=== PATIENT | male | born 1945 | race Two or more races ===

== ENCOUNTER 2025-02-09 14:39 | Emergency (ER) | payer MEDICARE, MEDICAID, SELFPAY ==
[2025-02-09 14:42] VITALS: BMI 27.4
--- NOTE | 2025-02-09 15:20 | PD.EDEYE ---
ED Eye Problem RME/HPI General Chief complaint: Eye Problems Stated complaint: something in eye after working in yard x 8 days Time Seen by Provider: 02/09/25 15:21 Source: patient Arrival date/time: 02/09/25 14:39 79-year-old male with no known medical history presents to the emergency room with a chief complaint of irritation to his left eye after doing yard work 8 days ago. Mode of arrival: ambulatory Limitations: no limitations Related Data Previous Rx's ?Medication ?Instructions ?Recorded albuterol sulfate 90 mcg/actuation 2 puff INH Q4HRRT PRN shortness of 07/18/20 aerosol inhaler (Ventolin HFA) breath or wheezing #6.7 grams cephalexin 500 mg capsule 500 mg PO Q8H #20 caps 03/30/23 sulfamethoxazole 800 1 tab PO BID #14 tabs 11/18/23 mg-trimethoprim 160 mg tablet (Bactrim DS) ciprofloxacin HCl 0.3 % eye drops See Rx Instructions ophthalmic 02/09/25 (eye) .COMPLEX #5 mL Allergies Allergy/AdvReac Type Severity Reaction Status Date / Time No Known Allergies Allergy Verified 11/02/23 18:21 Review of Systems Review of Systems Systems Reviewed: All systems reviewed, normal except as documented Constitutional Constitutional: Reports system reviewed and no additional complaints, except as documented, Denies fatigue, Denies fever(s), Denies headache(s) and Denies weakness Eyes Eyes: Reports system reviewed and no additional complaints, except as documented, Denies blind spots, Reports blurry vision, Denies change in vision, Denies decreased night vision, Denies diplopia, Denies eye discharge, Denies exophthalmos, Denies floaters, Reports irritation, Denies itchy eyes, Denies loss of peripheral vision, Denies loss of vision, Denies other visual disturbances, Reports eye pain, Denies photophobia, Denies requires corrective lenses, Denies seeing flashes, Denies spots in vision and Denies tunnel vision ENT Ears, Nose, Mouth, and Throat: Reports system reviewed and no additional complaints, except as documented, Denies otalgia, Denies headache(s), Denies nasal congestion, Denies throat swelling and Denies vertigo Cardiovascular Cardiovascular: Reports system reviewed and no additional complaints, except as documented, Denies chest pain, Denies dyspnea and Denies dyspnea on exertion Respiratory Respiratory: Reports system reviewed and no additional complaints, except as documented, Denies chest congestion, Denies cough, Denies dyspnea, Denies dyspnea on exertion and Denies wheezing Gastrointestinal Gastrointestinal: Reports system reviewed and no additional complaints, except as documented, Denies abdominal pain, Denies cramping, Denies nausea and Denies vomiting Genitourinary Genitourinary: Reports system reviewed and no additional complaints, except as documented, Denies dysuria and Denies hematuria Musculoskeletal Musculoskeletal: Reports system reviewed and no additional complaints, except as documented and Denies back pain Integumentary/Breasts Skin/Breast: Reports system reviewed and no additional complaints, except as documented and Denies wounds Neurologic Neurologic: Reports system reviewed and no additional complaints, except as documented, Denies confusion, Denies headache(s), Denies lack of coordination, Denies loss of vision, Denies vertigo and Denies weakness Psychiatric Psychiatric: Reports system reviewed and no additional complaints, except as documented, Denies anxiety, Denies confusion, Denies depression, Denies paranoia, Denies suicidal ideation and Denies tactile hallucinations Endocrine Endocrine: Reports system reviewed and no additional complaints, except as documented and Denies fatigue Hematologic/Lymphatic Hematologic/Lymphatic: Reports system reviewed and no additional complaints, except as documented and Denies lymphadenopathy Allergic/Immunologic Allergic/Immunologic: Reports system reviewed and no additional complaints, except as documented, Denies itchy eyes, Denies throat swelling, Denies urticaria and Denies wheezing ED Exam General Limitations: Present no limitations Course Quality Measures none Orders Category Date Time Status ED Eye Irrigation ONCE Care 02/09/25 15:19 Active Visual Acuity X1 Care 02/09/25 15:19 Active Holguin Lamp to Bedside X1 Care 02/09/25 15:19 Active Fluorescein Sodium [[id number]] Med 02/09/25 15:19 Discontinued 1 mg LEFT EYE X1 ONE TETRACAINE Op Caron 0.5% [Pontocaine Op Caron 0.5%] Med 02/09/25 15:19 Discontinued 1 drop LEFT EYE X1 ONE Vital Signs Vital signs: Vital Signs Temperature 97.8 F 02/09/25 15:42 Pulse Rate 58 L 02/09/25 15:42 Respiratory Rate 16 02/09/25 15:42 Blood Pressure 124/71 02/09/25 15:42 Pulse Oximetry (%) 97 02/09/25 15:42 Oxygen Delivery Method Room Air 02/09/25 15:42 O2 saturation 97% within normal limits Procedures -ED Holguin Lamp Exam Left eye: Flourescein uptake:: Yes Holguin Lamp Findings: Corneal abrasion Eye MDM Narrative MDM Narrative:: 79-year-old male with no known medical history presents to the emergency room with a chief complaint of irritation to his left eye after doing yard work 8 days ago. Patient is hemodynamically stable and in no apparent distress Physical examination shows pupils are PERRLA EOMs are intact there is no visual foreign body in the left eye. Conjunctive was not injected patient states his only symptom is blurry vision and irritation and feels like there is something inside his eye. A Holguin lamp examination was completed and shows a corneal abrasion. Antibiotics are sent to the patient's pharmacy Patient was discharged and educated to follow-up with primary care provider in the next 24 to 48 hours and return to the emergency room for any evidence of worsening signs or symptoms Patient data External records reviewed:: [facility] previous records Clinical information provided by:: patient Social determinants that could affect healthcare access:: none Patient has the following chronic illnesses:: No chronic illness How is presenting disease/condition affected by chronic disease/condition?: no chronic disease Evaluation data The following diagnostics were reviewed and interpreted by me:: lab results and radiology exam(s) Lab and/or radiology exams considered but not ordered:: Labs and radiology exams considered and ordered Interpretation Summary: N/A Medications / Prescriptions Medications or Prescriptions considered but not ordered:: Medication given Medication administrations:: Medication Administration History Discontinued Medications Fluorescein Sodium (Fluorescein Sod 1 Mg Strp) 1 mg LEFT EYE X1 ONE Stop: 02/09/25 15:20 Last Admin: 02/09/25 15:26 Dose: 1 mg Documented By: Tetracaine HCl (Tetracaine Pf Op Caron 0.5% 4 Ml Drpette) 1 drop LEFT EYE X1 ONE Stop: 02/09/25 15:20 Last Admin: 02/09/25 15:26 Dose: 1 drop Documented By: Medication given Consultations Consultation(s) initiated? (list below): No Diagnosis Eye Problem Differential Diagnosis: corneal abrasion, conjunctivitis, acute iritis, hyphema, periorbital cellulitis and corneal ulcer Most likely diagnosis given after review of the tests above:: Corneal abrasion Admission Indicated Admission indicated?: not indicated Admission Request Was there a request for admission?: No Disposition Plan Disposition Plan: Discharge Discharge Attestation Discharge Attestation: The patient and all family members were given an opportunity to ask questions and understood the discharge instructions. Discharge instructions specifically effects, indications for sooner follow up or return to the emergency department, and the expected course of current diagnosis. Patient condition: Stable Discharge Plan Plan Patient Disposition: HOME (Self Care) Prescriptions/Referrals Prescriptions/Med Rec: New ciprofloxacin HCl 0.3 % drops See Rx Instructions .ROUTE .COMPLEX Qty: 5 0RF Rx Instructions: put 1-2 drps in affected eye(s) every 2hr up to 8 times/day x2days; then 4 times/day x5days No Action albuterol sulfate [Ventolin HFA] 90 mcg/actuation Hfa Aerosol Inhaler 2 puff INH Q4HRRT PRN (Reason: shortness of breath or wheezing) Qty: 6.7 0RF sulfamethoxazole-trimethoprim [Bactrim DS] 800-160 mg tablet 1 tab PO BID Qty: 14 0RF cephalexin 500 mg capsule 500 mg PO Q8H Qty: 20 0RF Referrals: Krishna Blood [Primary Care Provider] - In 1 week Problem List Clinical Impression: Corneal abrasion Patient/Caregiver Discharge Instructions Education Materials: ED Corneal Abrasion Additional Instructions: Por favor, consulte con benites m?dico de cabecera en las pr?ximas 24 a 48 horas. Si sakshi signos y s?ntomas persisten, deber? consultar con un oftalm?logo para un tratamiento adicional. Los antibi?ticos se env?an a benites farmacia; rec?jalos y t?melos seg?n lo indicado. Paauilo ayudar? con la abrasi?n corneal que tiene en el marj. Si observa cualquier signo de empeoramiento de los signos o s?ntomas, acuda a urgencias de inmediato. Print Language: [place] Stand Alone Forms: Brenda Award Info., Patient Portal Info Letter PA/COLORIST DYER Supervising Physician PA/JOSE Supervising Physician: Dr Kelly
[2025-02-09] MEDS: FLUORESCEIN SOD 1 MG STRP LEFT EYE (15:26)
[2025-02-09] MEDS: TETRACAINE PF OP SOL 0.5% 4 ML DRPETTE 1 DROP LEFT EYE (15:26)
[2025-02-09 15:42] VITALS: BP 124/71; PULSE 58; RESP 16; TEMP 36.6; O2SAT 97
== END 2025-02-09 16:33 | disposition home or self-care (01) ==
PROVIDERS: Emergency Provider Emergency Medicine; PCP Physician Assistant
DX: S05.02XA Injury of conjunctiva and corneal abrasion without foreign body, left eye, initial encounter (principal); X58.XXXA Exposure to other specified factors, initial encounter
CPT/HCPCS: 99283

== ENCOUNTER → 2025-09-10 | Outpatient (CLI) | payer MEDICARE, MEDICAID, SELFPAY ==
--- NOTE | 2025-09-10 15:44 | XR_ITS ---
EXAMINATION: AP lateral soft tissue neck 2 views TECHNIQUE: AP lateral soft tissue neck 2 views Date and time: September 10, 2025, 1610 hours INDICATIONS: Neck pain beginning several years ago. FINDINGS: Straightening normal cervical doses. No cervical fracture. Moderate to advanced disc narrowing at C3-C4 Normal epiglottis Mild prevertebral soft tissue prominence, 23 mm at the C7 and C6 level IMPRESSION: Prevertebral soft tissue prominence as above, clinical correlation advised Consider CT soft tissue neck with intravenous contrast follow-up
--- NOTE | 2025-09-10 15:44 | XR_ITS ---
EXAMINATION: Left knee 2 views TECHNIQUE: AP lateral left knee 2 views Date and time: September 10, 2025, 1630 hours INDICATION: Left knee pain several years. FINDINGS: Moderate to advanced tricompartment osteoarthritis, including severe narrowing medial joint space and significant osteoarthritis patellofemoral joint No fracture Small knee effusion IMPRESSION: Moderate to advanced tricompartment osteoarthritis
--- NOTE | 2025-09-10 15:44 | XR_ITS ---
Examination: Shoulder, left, 3 views Technique: Shoulder AP internal rotation, AP external rotation, Y view shoulder, 3 views Exam date and time : September 10, 2025, 1610 hours INDICATIONS: Left shoulder pain beginning several years ago. FINDINGS: Moderate to advanced osteoarthritis glenohumeral joint Resection and old deformity left clavicle Old left-sided rib fractures No acute fracture IMPRESSION: Moderate to advanced osteoarthritis glenohumeral joint
--- NOTE | 2025-09-10 15:44 | XR_ITS ---
Examination: Lumbar spine, 5 views Technique: Lumbar spine AP, lateral, coned lateral lower lumbar spine, bilateral obliques 5 views Exam date and time: September 10, 2025, 1610 hours INDICATIONS: Low back pain beginning several years ago. 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
--- NOTE | 2025-09-10 15:44 | XR_ITS ---
EXAMINATION: Upright PA chest and bilateral ribs 5 views TECHNIQUE: Upright PA chest, RPO, LPO bilateral ribs total 5 views Date and time: September 10, 2025, 1610 hours INDICATIONS: Bilateral rib pain several years no trauma. FINDINGS: Mild to moderate enlargement left ventricle Ectatic enlarged thoracic aorta. No pneumonia or pulmonary edema. 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
== END | disposition home or self-care (01) ==
LOC: CDIM 15:26
PROVIDERS: Referring Provider Nurse Practitioner Family; Visit Provider Nurse Practitioner Family
DX: I51.7 Cardiomegaly (principal); M17.12 Unilateral primary osteoarthritis, left knee; M47.816 Spondylosis without myelopathy or radiculopathy, lumbar region; M51.360 Other intervertebral disc degeneration, lumbar region with discogenic back pain only; M48.061 Spinal stenosis, lumbar region without neurogenic claudication; M53.82 Other specified dorsopathies, cervical region; M19.012 Primary osteoarthritis, left shoulder
CPT/HCPCS: 70360; 71110; 72110; 73030; 73560